=== PATIENT | male | born 1995 | race Caucasian/White ===

== ENCOUNTER 2018-04-07 05:10 | Emergency (ER) | payer OTHER ==
[2018-04-07] MEDS: LIDOCAINE 2% MDV 20 ML VIAL SC (06:15)
== END 2018-04-07 07:09 | disposition home or self-care (01) ==
LOC: M ED 05:10
DX: S61.211A Laceration without foreign body of left index finger without damage to nail, initial encounter (principal); W26.0XXA Contact with knife, initial encounter; Y92.090 Kitchen in other non-institutional residence as the place of occurrence of the external cause; Z79.899 Other long term (current) drug therapy
CPT/HCPCS: 12001

== ENCOUNTER 2018-04-25 20:32 | Emergency (ER) | payer OTHER | END 2018-04-25 22:12 | disposition home or self-care (01) | LOC: M ED 20:32 | DX: F32.9 Major depressive disorder, single episode, unspecified (principal); F17.200 Nicotine dependence, unspecified, uncomplicated; Z79.899 Other long term (current) drug therapy | CPT/HCPCS: 99284 ==